=== PATIENT | female | born 1995 | race Caucasian/White ===

== ENCOUNTER → 2016-08-25 | Outpatient (CLI) | payer SELFPAY ==
--- NOTE | ~2016-08-25 | EKG ---
PATIENT: CAROLANN NIXON UNIT #: [id number] Ventricular Rate: 66 BPM Atrial Rate: 66 BPM P-R Interval: 120 ms QRS Duration: 92 ms Q-T Interval: 374 ms QTC Calculation(Bezet): 392 ms P [place]: 43 degrees Calculated R [place]: 73 degrees Calculated T [place]: 22 degrees Diagnosis Line: Normal sinus rhythm with sinus arrhythmia Diagnosis Line: Normal ECG Diagnosis Line: No previous ECGs available Diagnosis Line: Confirmed by DIANA MURPHY MD ([id number]) on Diagnosis Line: 08/26/2016 9:03:51 AM INTERPRETING MD: JEFFREY DOMINGO
== END | disposition home or self-care (01) ==
LOC: CEKG 12:14
DX: R06.02 Shortness of breath (principal); R06.00 Dyspnea, unspecified
CPT/HCPCS: 93005

== ENCOUNTER → 2016-09-16 | Outpatient (CLI) | payer SELFPAY ==
--- NOTE | ~2016-09-16 | TM ---
[id number] NAME: CAROLANN NIXON MR#: [id number] EXAM Treadmill stress test FINDINGS Resting heart rate is 63, resting blood pressure is 102/70 mmHg. Baseline EKG shows normal sinus rhythm. No significant ST T wave changes. PROCEDURE The patient was made to exercise on a standard [place] protocol. Total exercise time is 9 minutes, completing stage 3 of a standard [place] protocol. Test stopped because target heart rate achieved. No complaints of chest pain or extreme shortness of breath. Maximal heart rate obtained is 191, which is 96% of maximum predicted heart rate. Maximal blood pressure obtained is 148/[address] T wave changes suggestive of ischemia. No arrhythmias noted. CONCLUSION 1. Good exercise tolerance. 2. There is no clinical, hemodynamic or EKG evidence of ischemia at good work load (96% of maximum predicted heart rate, 10.1 METs. 3. Normal heart rate and blood pressure response. 4. Normal regular treadmill stress test. Dictated by...
== END | disposition home or self-care (01) ==
LOC: CEKG 10:00
DX: R07.89 Other chest pain (principal); R94.31 Abnormal electrocardiogram [ECG] [EKG]; R06.02 Shortness of breath
CPT/HCPCS: 93017